=== PATIENT | female | born 1990 | race Caucasian/White ===

== ENCOUNTER 2016-12-16 22:46 | Emergency (ER) | payer OTHER ==
[~2016-12-16] VITALS: Ht 162.6 cm; Wt 83.2 kg
[~2016-12-16 22:46] MED LIST: MOTRIN 600600 MG/TAB PO; PERCOCET 325 MG1 TA2 PO; PRENATAL1 TA1 PO; PRENATAL1 TA7 PO
[2016-12-16 22:48] VITALS: TEMP 97.9
[2016-12-16] MEDS ORDERED: ULTRAM 50MG TAB50 MG PO (23:13)
[2016-12-17 00:10] VITALS: BP 113/76; PULSE 74
== END 2016-12-17 00:10 | disposition home or self-care (01) ==
LOC: COL.ER 22:46
DX: J06.9 Acute upper respiratory infection, unspecified (principal); M25.511 Pain in right shoulder